=== PATIENT | female | born 1940 | race Caucasian/White ===

== ENCOUNTER → 2018-06-06 12:50 | Outpatient (CLI) | payer MEDICARE, SELFPAY ==
[2018-06-08 15:13] LABS: Fecal Immunochemical Test NOT DETECTED
== END ==
PROVIDERS: PCP Physician Assistant; Visit Provider Physician Assistant
DX: Z12.11 Encounter for screening for malignant neoplasm of colon (principal)
CPT/HCPCS: 82274

== ENCOUNTER → 2018-06-07 09:22 | Outpatient (CLI) | payer MEDICARE, SELFPAY ==
[2018-06-07 10:06] LABS: Cholesterol 227 mg/dL (140-199); HDL Cholesterol 72 mg/dL (40-60); LDL Cholesterol Calculated 136 mg/dL (<100); Triglycerides 96 mg/dL (35-150)
[2018-06-07 10:21] LABS: Vitamin D 25 Hydroxy (D3) 66.6 ng/mL (30.0-100.0)
[2018-06-07 10:53] LABS: Vitamin B12 542 pg/mL (239-931)
== END ==
PROVIDERS: PCP Physician Assistant; Visit Provider Physician Assistant
DX: M81.0 Age-related osteoporosis without current pathological fracture (principal); Z78.0 Asymptomatic menopausal state; E78.5 Hyperlipidemia, unspecified; M62.81 Muscle weakness (generalized); R26.89 Other abnormalities of gait and mobility; Z90.722 Acquired absence of ovaries, bilateral; Z82.62 Family history of osteoporosis
CPT/HCPCS: 36415; 77080; 80061; 82306; 82607

== ENCOUNTER → 2018-09-22 11:52 | Outpatient (CLI) | payer MEDICARE, SELFPAY ==
--- NOTE | 2018-09-22 | DI.MG.S_ITS ---
BILATERAL DIGITAL SCREENING MAMMOGRAM 3D/2D WITH CAD: 09/22/2018 CLINICAL: Routine screening. Family history of breast cancer. Comparison is made to exams dated: 09/20/2017 mammogram - [facility], 09/17/2016 mammogram - [facility], and 09/16/2015 mammogram - [facility]. The tissue of both breasts is extremely dense, which lowers the sensitivity of mammography. Current study was also evaluated with a Computer Aided Detection (CAD) system. There is a mole marker on both breasts. Partially imaged cardiac pacer device projects over the left upper chest, partially obscuring underlying anatomy. No significant masses, calcifications, or other findings are seen in either breast. There has been no significant interval change. IMPRESSION: NEGATIVE There is no mammographic evidence of malignancy. A 1 year screening mammogram is recommended. This exam was interpreted at Station ID: [id number]. NOTE: For mammograms, a report in lay terms will be sent to the patient. Approximately 15% of breast malignancies will not be visualized mammographically. In the management of a palpable breast mass, a negative mammogram must not discourage biopsy of a clinically suspicious lesion. Electronically Signed By: Frederic Sutton M.D. ecl/:09/22/2018 17:11:56 copy to: JOURDAN SELF letter sent: Normal Exam ACR BI-RADS Category 1: Negative 3341F
== END ==
PROVIDERS: PCP Physician Assistant; Visit Provider Physician Assistant
DX: Z12.31 Encounter for screening mammogram for malignant neoplasm of breast (principal); Z80.3 Family history of malignant neoplasm of breast
CPT/HCPCS: 77063; 77067

== ENCOUNTER → 2019-11-30 13:00 | Outpatient (CLI) | payer MEDICARE, SELFPAY ==
--- NOTE | 2019-11-30 | DI.MG.S_ITS ---
BILATERAL DIGITAL SCREENING MAMMOGRAM 3D/2D WITH CAD: 11/30/2019 CLINICAL: Routine screening. Family history of breast cancer. Comparison is made to exams dated: 09/22/2018 mammogram, 09/20/2017 mammogram - [facility], and 09/17/2016 mammogram - [facility]. The tissue of both breasts is extremely dense, which lowers the sensitivity of mammography. Current study was also evaluated with a Computer Aided Detection (CAD) system. There is a mole marker on both breasts. No significant masses, calcifications, or other findings are seen in either breast. There has been no significant interval change. IMPRESSION: NEGATIVE There is no mammographic evidence of malignancy. A 1 year screening mammogram is recommended. This exam was interpreted at Station ID: [id number]. NOTE: For mammograms, a report in lay terms will be sent to the patient. Approximately 15% of breast malignancies will not be visualized mammographically. In the management of a palpable breast mass, a negative mammogram must not discourage biopsy of a clinically suspicious lesion. Electronically Signed By: Hai honeycutt/gautam:11/30/2019 15:49:01 letter sent: Normal Exam ACR BI-RADS Category 1: Negative 3341F
== END ==
PROVIDERS: PCP Physician Assistant; Referring Provider Physician Assistant; Visit Provider Physician Assistant
DX: Z12.31 Encounter for screening mammogram for malignant neoplasm of breast (principal); Z80.3 Family history of malignant neoplasm of breast
CPT/HCPCS: 77063; 77067

== ENCOUNTER → 2020-03-26 08:30 | Outpatient (CLI) | payer MEDICARE, SELFPAY ==
[2020-03-26 09:32] LABS: Add Manual Diff / Slide Review NO; Basophils Absolute Auto 0 /uL (0-100); Eosinophils Absolute Auto 100 /uL (0-450); Eosinophils Percent Auto 3.8 % (2-4); Hematocrit 37.5 % (36-46); Hemoglobin 12.6 g/dL (12.0-16.0); Lymphocytes Absolute Auto 1300 /uL (1100-4500); Lymphocytes Percent Auto 38.9 % (25-40); Mean Corpuscular HGB Conc 33.7 % (30-36); Mean Corpuscular Hemoglobin 30.8 PG (26-34); Mean Corpuscular Volume 91.5 fL (80-100); Monocytes Absolute Auto 300 /uL (0-900); Monocytes Percent Auto 9.8 % (3-14); Neutrophils Absolute Auto 1500 /uL (1500-7000); Neutrophils Percent Auto 46.5 % (50-75); Platelet Count 259 X10^3/uL (150-400); Red Cell Distribution Width 13.4 % (11.6-14.8); White Blood Cell Count 3.2 X10^3/uL (4.5-11.0)
[2020-03-26 10:00] LABS: Erythrocyte Sedimentation Rate 2 MM/HR (0-20)
[2020-03-26 10:06] LABS: Alanine Aminotransferase 16 IU/L (<35); Albumin Globulin Ratio 1.4 (1.0-2.8); Alkaline Phosphatase 56 U/L (38-126); Aspartate Aminotransferase 26 IU/L (14-36); Bilirubin Total 0.5 mg/dL (0.2-1.3); Blood Urea Nitrogen 17 mg/dL (7-17); C-Reactive Protein Quant < 0.5 mg/dL (<1.0); Calcium 8.9 mg/dL (8.4-10.2); Carbon Dioxide 32 mmol/L (22-32); Chloride 104 mmol/L (98-107); Cholesterol 198 mg/dL (140-199); Estimated Glomerular Filt Rate > 60.0 mL/min (>60); Globulin 2.8 g/dL (1.7-4.1); Glucose 103 mg/dL (80-110); HDL Cholesterol 62 mg/dL (40-60); HEMOLYSIS < 15 (0-50); LDL Cholesterol Calculated 114 mg/dL (<100); Potassium 4.3 mmol/L (3.4-5.1); Sodium 138 mmol/L (137-145); Total Protein 6.8 g/dL (6.3-8.2); Triglycerides 111 mg/dL (35-150)
[2020-03-26 10:11] LABS: Free T3, Triiodothyronine Free 3.53 pg/mL (2.77-5.27); Free T4, Direct Thyroxine 0.95 ng/dL (0.78-2.19)
[2020-03-26 10:24] LABS: Thyroid Stimulating Hormone 2.36 uIU/mL (0.47-4.68)
[2020-03-26 10:56] LABS: Rheumatoid Factor < 8.6 IU/mL (<12.0)
== END ==
PROVIDERS: PCP Nurse Practitioner; Referring Provider Nurse Practitioner; Visit Provider Nurse Practitioner
DX: E78.5 Hyperlipidemia, unspecified (principal); I10 Essential (primary) hypertension; R29.898 Other symptoms and signs involving the musculoskeletal system; Z79.899 Other long term (current) drug therapy
CPT/HCPCS: 36415; 80053; 80061; 84439; 84443; 84481; 85025; 85651; 86140; 86430

== ENCOUNTER → 2020-03-27 08:34 | Outpatient (CLI) | payer MEDICARE, SELFPAY ==
[2020-03-27 11:24] LABS: Creatinine Urine Random 33.1 mg/dL
[2020-03-27 11:29] LABS: Microalbumin Urine Random < 0.6 mg/dL (0-1.6)
== END ==
PROVIDERS: PCP Nurse Practitioner; Referring Provider Nurse Practitioner; Visit Provider Nurse Practitioner
DX: E78.5 Hyperlipidemia, unspecified (principal); I10 Essential (primary) hypertension; R29.898 Other symptoms and signs involving the musculoskeletal system; Z79.899 Other long term (current) drug therapy
CPT/HCPCS: 82043; 82570

== ENCOUNTER → 2020-07-29 13:34 | Outpatient (CLI) | payer MEDICARE, SELFPAY | PROVIDERS: PCP Nurse Practitioner; Referring Provider Nurse Practitioner; Visit Provider Nurse Practitioner | DX: M81.0 Age-related osteoporosis without current pathological fracture (principal); Z78.0 Asymptomatic menopausal state; Z90.722 Acquired absence of ovaries, bilateral; Z82.62 Family history of osteoporosis | CPT/HCPCS: 77080 ==

== ENCOUNTER → 2020-12-02 10:16 | Outpatient (CLI) | payer MEDICARE, SELFPAY ==
--- NOTE | 2020-12-02 10:17 | DI.MG.S_ITS ---
BILATERAL DIGITAL SCREENING MAMMOGRAM 3D/2D WITH CAD: 12/02/2020 CLINICAL: Routine screening. Family history of breast cancer. Comparison is made to exams dated: 11/30/2019 mammogram, 09/22/2018 mammogram, and 09/20/2017 mammogram - [facility]. The tissue of both breasts is extremely dense, which lowers the sensitivity of mammography. Current study was also evaluated with a Computer Aided Detection (CAD) system. There is a mole marker on both breasts. No significant masses, calcifications, or other findings are seen in either breast. There has been no significant interval change. IMPRESSION: NEGATIVE There is no mammographic evidence of malignancy. A 1 year screening mammogram is recommended. This exam was interpreted at Station ID: [id number]. NOTE: For mammograms, a report in lay terms will be sent to the patient. Approximately 15% of breast malignancies will not be visualized mammographically. In the management of a palpable breast mass, a negative mammogram must not discourage biopsy of a clinically suspicious lesion. Electronically Signed By: Hai honeycutt/gautam:12/02/2020 12:24:30 letter sent: Normal Exam ACR BI-RADS Category 1: Negative 3341F
== END ==
PROVIDERS: PCP Nurse Practitioner; Referring Provider Nurse Practitioner; Visit Provider Nurse Practitioner
DX: Z12.31 Encounter for screening mammogram for malignant neoplasm of breast (principal); Z12.39 Encounter for other screening for malignant neoplasm of breast
CPT/HCPCS: 77063; 77067

== ENCOUNTER → 2021-05-29 09:36 | Outpatient (CLI) | payer MEDICARE, SELFPAY ==
[2021-05-29 11:00] LABS: Alanine Aminotransferase 28 IU/L (<35); Albumin 3.9 g/dL (3.5-5.0); Albumin Globulin Ratio 1.4 (1.0-2.8); Alkaline Phosphatase 53 U/L (38-126); Aspartate Aminotransferase 29 IU/L (14-36); BUN Creatinine Ratio 29.4 (6-22); Bilirubin Total 0.6 mg/dL (0.2-1.3); Blood Urea Nitrogen 20 mg/dL (7-17); Calcium 9.2 mg/dL (8.4-10.2); Carbon Dioxide 32 mmol/L (22-32); Chloride 103 mmol/L (98-107); Cholesterol 220 mg/dL (140-199); Estimated Glomerular Filt Rate > 60.0 mL/min (>60); Globulin 2.7 g/dL (1.7-4.1); Glucose 108 mg/dL (80-110); HDL Cholesterol 72 mg/dL (40-60); HEMOLYSIS < 15 (0-50); LDL Cholesterol Calculated 127 mg/dL (<100); Magnesium 2.1 mg/dL (1.6-2.3); Potassium 4.6 mmol/L (3.4-5.1); Sodium 138 mmol/L (137-145); Total Protein 6.6 g/dL (6.3-8.2); Triglycerides 104 mg/dL (35-150)
[2021-05-29 11:20] LABS: Free T3, Triiodothyronine Free 3.89 pg/mL (2.77-5.27); Free T4, Direct Thyroxine 0.99 ng/dL (0.78-2.19)
[2021-05-29 11:34] LABS: Thyroid Stimulating Hormone 2.22 uIU/mL (0.47-4.68)
== END ==
PROVIDERS: PCP Nurse Practitioner; Referring Provider Nurse Practitioner; Visit Provider Nurse Practitioner
DX: I10 Essential (primary) hypertension (principal); E78.5 Hyperlipidemia, unspecified; M79.10 Myalgia, unspecified site; Z79.899 Other long term (current) drug therapy
CPT/HCPCS: 36415; 80053; 80061; 83735; 84439; 84443; 84481

== ENCOUNTER → 2021-06-03 11:20 | Outpatient (CLI) | payer MEDICARE, SELFPAY | PROVIDERS: PCP Nurse Practitioner; Referring Provider Nurse Practitioner; Visit Provider Nurse Practitioner | DX: E78.5 Hyperlipidemia, unspecified (principal); I10 Essential (primary) hypertension; M79.10 Myalgia, unspecified site; Z79.899 Other long term (current) drug therapy | CPT/HCPCS: 82043; 82570 ==

== ENCOUNTER → 2021-07-24 08:16 | Outpatient (CLI) | payer MEDICARE, SELFPAY ==
[2021-07-24 09:05] LABS: Hematocrit 39.1 % (36-46); Platelet Count 293 X10^3/uL (150-400)
[2021-07-24 09:18] LABS: INR 1.1 (0.9-1.3); Prothrombin Time 12.4 SECONDS (10.1-12.7)
[2021-07-24 09:21] LABS: PTT Partial Thromboplastin Tim 35 SECONDS (26.4-36.2)
== END ==
PROVIDERS: PCP Nurse Practitioner; Referring Provider Physical Medicine & Rehabilitation; Visit Provider Physical Medicine & Rehabilitation
DX: M48.062 Spinal stenosis, lumbar region with neurogenic claudication (principal)
CPT/HCPCS: 36415; 85014; 85049; 85610; 85730

== ENCOUNTER → 2022-01-12 08:18 | Outpatient (CLI) | payer MEDICARE, SELFPAY ==
--- NOTE | 2022-01-12 08:20 | DI.MG.S_ITS ---
BILATERAL DIGITAL SCREENING MAMMOGRAM 3D/2D WITH CAD: 01/12/2022 CLINICAL: Routine screening. Family history of breast cancer. Comparison is made to exams dated: 12/02/2020 mammogram, 11/30/2019 mammogram, 09/22/2018 mammogram, 09/20/2017 mammogram - [facility], and 09/17/2016 mammogram - [facility]. The tissue of both breasts is extremely dense, which lowers the sensitivity of mammography. Current study was also evaluated with a Computer Aided Detection (CAD) system. No significant masses, calcifications, or other findings are seen in either breast. There has been no significant interval change. IMPRESSION: NEGATIVE There is no mammographic evidence of malignancy. A 1 year screening mammogram is recommended. Based on the Tyrer Cuzick model (a risk assessment model) the patient's lifetime risk is 3.3% and her 10 year risk is 0.0%. According to the ACR, ACS, and NCCN guidelines, an annual breast MRI exam along with mammogram is recommended if the patient's lifetime risk is 20% or greater. This exam was interpreted at Station ID: [id number]. NOTE: For mammograms, a report in lay terms will be sent to the patient. Approximately 15% of breast malignancies will not be visualized mammographically. In the management of a palpable breast mass, a negative mammogram must not discourage biopsy of a clinically suspicious lesion. Electronically Signed By: Brad lee/gautam:01/12/2022 09:32:32 letter sent: Normal Exam ACR BI-RADS Category 1: Negative 3341F
== END ==
PROVIDERS: PCP Nurse Practitioner; Referring Provider Nurse Practitioner; Visit Provider Nurse Practitioner
DX: Z12.31 Encounter for screening mammogram for malignant neoplasm of breast (principal); Z80.3 Family history of malignant neoplasm of breast
CPT/HCPCS: 77063; 77067

== ENCOUNTER → 2022-03-09 09:19 | Outpatient (CLI) | payer MEDICARE, SELFPAY ==
[2022-03-09 13:00] LABS: Influenza A - CEPHEID Flu A NEGATIVE (NEGATIVE); Influenza B - CEPHEID Flu B NEGATIVE (NEGATIVE)
[2022-03-09 13:27] LABS: COVID-19 CEPHEID PCR (VTM/NP) POSITIVE (Negative)
== END ==
PROVIDERS: PCP Nurse Practitioner; Visit Provider Physician Assistant Medical
DX: U07.1 COVID-19 (principal); R05.9 Cough, unspecified; R50.9 Fever, unspecified; Z20.822 Contact with and (suspected) exposure to COVID-19
CPT/HCPCS: 0240U

== ENCOUNTER → 2022-08-21 08:53 | Outpatient (CLI) | payer MEDICARE, SELFPAY ==
[2022-08-21 09:59] LABS: Alanine Aminotransferase 21 IU/L (<35); Albumin 4.3 g/dL (3.5-5.0); Albumin Globulin Ratio 1.4 (1.0-2.8); Alkaline Phosphatase 60 U/L (38-126); Aspartate Aminotransferase 25 IU/L (14-36); BUN Creatinine Ratio 21.7 (6-22); Bilirubin Total 0.8 mg/dL (0.2-1.3); Blood Urea Nitrogen 15 mg/dL (7-17); Carbon Dioxide 28 mmol/L (22-32); Chloride 102 mmol/L (98-107); Cholesterol 244 mg/dL (140-199); Estimated Glomerular Filt Rate > 60 mL/min (>60); Globulin 3.1 g/dL (1.7-4.1); Glucose 99 mg/dL (80-110); HDL Cholesterol 78 mg/dL (40-60); HEMOLYSIS < 15 (0-50); LDL Cholesterol Calculated 134 mg/dL (<100); Potassium 4.6 mmol/L (3.4-5.1); Sodium 137 mmol/L (137-145); Total Protein 7.4 g/dL (6.3-8.2); Triglycerides 159 mg/dL (35-150)
[2022-08-21 10:05] LABS: Add Manual Diff / Slide Review NO; Basophils Absolute Auto 0 /uL (0-100); Basophils Percent Auto 0.7 % (0-2); Eosinophils Absolute Auto 100 /uL (0-450); Eosinophils Percent Auto 2.3 % (2-4); Hematocrit 41.1 % (36-46); Hemoglobin 13.8 g/dL (12.0-16.0); Lymphocytes Absolute Auto 1200 /uL (1100-4500); Lymphocytes Percent Auto 37.1 % (25-40); Mean Corpuscular HGB Conc 33.4 % (30-36); Mean Corpuscular Hemoglobin 30.2 PG (26-34); Mean Corpuscular Volume 90.2 fL (80-100); Monocytes Absolute Auto 300 /uL (0-900); Monocytes Percent Auto 9.9 % (3-14); Neutrophils Absolute Auto 1600 /uL (1500-7000); Platelet Count 300 X10^3/uL (150-400); Red Blood Cell Count 4.56 X10^6/uL (4.0-5.2); Red Cell Distribution Width 13.2 % (11.6-14.8); White Blood Cell Count 3.2 X10^3/uL (4.5-11.0)
[2022-08-21 10:14] LABS: Vitamin D 25 Hydroxy (D3) 94.8 ng/mL (30.0-100.0)
== END ==
PROVIDERS: PCP Family Medicine; Referring Provider Family Medicine; Visit Provider Family Medicine
DX: Z13.820 Encounter for screening for osteoporosis (principal); M81.0 Age-related osteoporosis without current pathological fracture; E78.5 Hyperlipidemia, unspecified; G62.9 Polyneuropathy, unspecified; I10 Essential (primary) hypertension; Z79.83 Long term (current) use of bisphosphonates; Z90.710 Acquired absence of both cervix and uterus
CPT/HCPCS: 36415; 77080; 80053; 80061; 82306; 85025

== ENCOUNTER → 2022-09-24 09:04 | Outpatient (CLI) | payer MEDICARE, SELFPAY ==
[2022-09-24 10:56] LABS: Ferritin 55 ng/mL (11-264)
[2022-09-24 10:59] LABS: Free T4, Direct Thyroxine 1.08 ng/dL (0.78-2.19)
[2022-09-24 11:00] LABS: Free T3, Triiodothyronine Free 3.73 pg/mL (2.77-5.27)
[2022-09-24 11:14] LABS: Thyroid Stimulating Hormone 0.662 uIU/mL (0.47-4.68)
[2022-10-12 13:51] LABS: Triiodothyronine T3 Reverse 12.7
== END ==
PROVIDERS: PCP Family Medicine; Referring Provider Family Medicine; Visit Provider Family Medicine
DX: L65.9 Nonscarring hair loss, unspecified (principal)
CPT/HCPCS: 36415; 82728; 84439; 84443; 84481; 84482

== ENCOUNTER → 2023-01-27 13:57 | Outpatient (CLI) | payer MEDICARE, SELFPAY ==
--- NOTE | 2023-01-27 | DI.MG.S_ITS ---
BILATERAL DIGITAL SCREENING MAMMOGRAM 3D/2D WITH CAD: 01/27/2023 CLINICAL: Routine screening. Family history of breast cancer. Comparison is made to exams dated: 01/12/2022 mammogram, 12/02/2020 mammogram, and 11/30/2019 mammogram - [facility]. Both breasts are heterogeneously dense, which may obscure small masses (category c / 51-75% glandular tissue). Current study was also evaluated with a Computer Aided Detection (CAD) system. No significant masses, calcifications, or other findings are seen in either breast. There has been no significant interval change. IMPRESSION: NEGATIVE There is no mammographic evidence of malignancy. A 1 year screening mammogram is recommended. Based on the Tyrer Cuzick model (a risk assessment model) the patient's lifetime risk is 1.5% and her 10 year risk is 0.0%. According to the ACR, ACS, and NCCN guidelines, an annual breast MRI exam along with mammogram is recommended if the patient's lifetime risk is 20% or greater. This exam was interpreted at Station ID: [id number]. NOTE: For mammograms, a report in lay terms will be sent to the patient. Approximately 15% of breast malignancies will not be visualized mammographically. In the management of a palpable breast mass, a negative mammogram must not discourage biopsy of a clinically suspicious lesion. Electronically Signed By: Felecia gurrola/gautam:01/27/2023 15:01:40 letter sent: Normal Exam ACR BI-RADS Category 1: Negative 3341F
== END ==
PROVIDERS: PCP Family Medicine; Referring Provider Family Medicine; Visit Provider Family Medicine
DX: Z12.31 Encounter for screening mammogram for malignant neoplasm of breast (principal); Z80.3 Family history of malignant neoplasm of breast
CPT/HCPCS: 77063; 77067

== ENCOUNTER → 2023-07-28 09:30 | Outpatient (CLI) | payer MEDICARE, SELFPAY ==
[2023-07-28 10:58] LABS: Blood Urea Nitrogen 12 mg/dL (7-17); Calcium 9.2 mg/dL (8.4-10.2); Carbon Dioxide 29 mmol/L (22-32); Chloride 104 mmol/L (98-107); Estimated Glomerular Filt Rate > 60 mL/min (>60); Glucose 103 mg/dL (80-110); HEMOLYSIS < 15 (0-50); Potassium 4.6 mmol/L (3.4-5.1); Sodium 136 mmol/L (137-145)
[2023-07-28 11:22] LABS: TSH w/ Reflex to FT4 1.78 uIU/mL (0.47-4.68)
== END ==
PROVIDERS: PCP Family Medicine; Referring Provider Internal Medicine Cardiovascular Disease; Visit Provider Family Medicine
DX: Z13.29 Encounter for screening for other suspected endocrine disorder (principal); I48.91 Unspecified atrial fibrillation; I44.1 Atrioventricular block, second degree; I49.5 Sick sinus syndrome; L65.9 Nonscarring hair loss, unspecified; M81.0 Age-related osteoporosis without current pathological fracture; M79.10 Myalgia, unspecified site
CPT/HCPCS: 36415; 80048; 84443

== ENCOUNTER → 2024-02-04 07:54 | Outpatient (CLI) | payer MEDICARE, SELFPAY ==
--- NOTE | 2024-02-04 | DI.MG.S_ITS ---
BILATERAL DIGITAL SCREENING MAMMOGRAM 3D/2D WITH CAD: 02/04/2024 CLINICAL: Routine screening. Family history of breast cancer. Comparison is made to exams dated: 01/27/2023 mammogram, 01/12/2022 mammogram, and 12/02/2020 mammogram - [facility]. Both breasts are extremely dense, which lowers the sensitivity of mammography (category d />75% glandular tissue). Current study was also evaluated with a Computer Aided Detection (CAD) system. No significant masses, calcifications, or other findings are seen in either breast. There has been no significant interval change. IMPRESSION: NEGATIVE There is no mammographic evidence of malignancy. A 1 year screening mammogram is recommended. Based on the Tyrer Cuzick model (a risk assessment model) the patient's lifetime risk is 1.1% and her 10 year risk is 0.0%. According to the ACR, ACS, and NCCN guidelines, an annual breast MRI exam along with mammogram is recommended if the patient's lifetime risk is 20% or greater. This exam was interpreted at Station ID: [id number]. NOTE: For mammograms, a report in lay terms will be sent to the patient. Approximately 15% of breast malignancies will not be visualized mammographically. In the management of a palpable breast mass, a negative mammogram must not discourage biopsy of a clinically suspicious lesion. Electronically Signed By: Erasto tsai/gautam:02/04/2024 12:49:52 letter sent: Normal Exam ACR BI-RADS Category 1: Negative 3341F
== END ==
PROVIDERS: PCP Family Medicine; Referring Provider Family Medicine; Visit Provider Family Medicine
DX: Z12.31 Encounter for screening mammogram for malignant neoplasm of breast (principal); Z80.3 Family history of malignant neoplasm of breast; R92.343 Mammographic extreme density, bilateral breasts
CPT/HCPCS: 77063; 77067

== ENCOUNTER → 2024-02-21 11:12 | Outpatient (CLI) | payer MEDICARE, SELFPAY ==
[2024-02-21 16:18] LABS: Creatinine Urine Random 26.73 mg/dL; Protein (Total) Urine Random 11 mg/dL (0-12); Protein Creatinine Ratio Urine 0.41 GRAM/24H
== END ==
PROVIDERS: PCP Family Medicine; Visit Provider Family Medicine
DX: I10 Essential (primary) hypertension (principal); R10.9 Unspecified abdominal pain
CPT/HCPCS: 82570; 84156

== ENCOUNTER → 2024-02-21 11:38 | Outpatient (CLI) | payer MEDICARE, SELFPAY ==
--- NOTE | 2024-02-21 11:40 | DI.RAD.S_ITS ---
PROCEDURE: XR LUMBAR SPINE 2-3V INDICATIONS: severity of scoliosis, R iliac crest pain TECHNIQUE: 3 views of the lumbar spine were acquired. COMPARISON: [facility], CT, CT MYELOGRAM LUMBAR SPINE, 07/30/2021, 12:44. FINDINGS: Bones: 5 [id number] vertebrae are present. Dextroscoliosis. No vertebral body compression fractures. No suspicious bony lesions. Soft tissues: Overlying bowel gas pattern is normal. No suspicious soft tissue calcifications. Pacemaker leads. IMPRESSION: No compression fracture. CT bony pelvis could be considered for further evaluation. Dictated by: Brad Borrego M.D. on 02/21/2024 at 16:07 Approved by: Brad Borrego M.D. on 02/21/2024 at 16:09
--- NOTE | 2024-02-21 11:40 | DI.RAD.S_ITS ---
PROCEDURE: XR THORACIC SPINE 3V INDICATIONS: severity of scoliosis TECHNIQUE: 3 views of the thoracic spine were acquired. COMPARISON: [facility], CT, CT MYELOGRAM LUMBAR SPINE, 07/30/2021, 12:44. Located Within [facility], CR, XR LUMBAR SPINE 2-3V, 02/21/2024, 11:47. FINDINGS: Bones: No fractures or dislocations. No suspicious bony lesions. Small vertebral body osteophytes. Multilevel disc space height loss. Lumbar scoliosis. 12 pairs of ribs are noted, and appear intact where visualized. Soft tissues: No paravertebral stripe thickening. Left pacemaker. Post median sternotomy. Cardiac valve replacement. 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 No compression fracture. Dictated by: Brad Borrego M.D. on 02/21/2024 at 16:09 Approved by: Brad Borrego M.D. on 02/21/2024 at 16:11
== END ==
PROVIDERS: PCP Family Medicine; Referring Provider Family Medicine; Visit Provider Family Medicine
DX: M47.814 Spondylosis without myelopathy or radiculopathy, thoracic region (principal); M54.50 Low back pain, unspecified; I10 Essential (primary) hypertension; M41.9 Scoliosis, unspecified; R10.9 Unspecified abdominal pain
CPT/HCPCS: 72072; 72100; 82570; 84156

== ENCOUNTER → 2024-05-01 08:10 | Outpatient (CLI) | payer MEDICARE, SELFPAY ==
[2024-05-01 09:51] LABS: BUN Creatinine Ratio 21.4 (6-22); Blood Urea Nitrogen 15 mg/dL (7-17); Calcium 9.3 mg/dL (8.4-10.2); Carbon Dioxide 28 mmol/L (22-32); Chloride 104 mmol/L (98-107); Estimated Glomerular Filt Rate > 60 mL/min (>60); Glucose 113 mg/dL (80-110); HEMOLYSIS < 15 (0-50); Potassium 4.8 mmol/L (3.4-5.1); Sodium 138 mmol/L (137-145)
== END ==
PROVIDERS: PCP Family Medicine; Referring Provider Nurse Practitioner; Visit Provider Nurse Practitioner
DX: Z51.81 Encounter for therapeutic drug level monitoring (principal); Z79.899 Other long term (current) drug therapy
CPT/HCPCS: 36415; 80048

== ENCOUNTER → 2024-12-25 09:09 | Outpatient (CLI) | payer MEDICARE, SELFPAY ==
[2024-12-25 10:22] LABS: BUN Creatinine Ratio 26.6 (6-22); Blood Urea Nitrogen 17 mg/dL (7-17); Calcium 9.4 mg/dL (8.4-10.2); Carbon Dioxide 27 mmol/L (22-32); Chloride 103 mmol/L (98-107); Estimated Glomerular Filt Rate > 60 mL/min (>60); Glucose 110 mg/dL (70-99); HEMOLYSIS < 15 (0-50); Potassium 4.7 mmol/L (3.4-5.1); Sodium 136 mmol/L (137-145)
== END ==
PROVIDERS: PCP Family Medicine; Referring Provider Nurse Practitioner; Visit Provider Nurse Practitioner
DX: Z51.81 Encounter for therapeutic drug level monitoring (principal); Z79.899 Other long term (current) drug therapy
CPT/HCPCS: 36415; 80048

== ENCOUNTER → 2025-02-05 11:10 | Outpatient (CLI) | payer MEDICARE, SELFPAY ==
--- NOTE | 2025-02-05 11:11 | DI.MG.S_ITS ---
MM screening mammo BI: 02/05/2025. BI-RADS: 1 CLINICAL: 84-year old female for bilateral screening mammogram. No Tyrer-Cuzick risk score calculation due to patient's age being over 85 years old. Current reported family history of breast cancer: sister and maternal aunt's daughter. PRIOR EXAMS 02/04/2024, 01/27/2023, 01/12/2022, 12/02/2020. MAMMOGRAPHY TECHNIQUE: 2D and 3D (tomosynthesis) digital mammographic views obtained, with additional images as needed for full coverage. Current study was also evaluated with a Computer Aided Detection (CAD) system. DENSITY D. The breasts are extremely dense, which lowers the sensitivity of mammography. MAMMOGRAPHY FINDINGS Bilateral: No suspicious mass, asymmetry, microcalcification, or other abnormality seen. IMPRESSION: * No evidence of malignancy. RECOMMENDATIONS Bilateral * Annual screening mammography. OVERALL ASSESSMENT CATEGORY BI-RADS-1: Negative. The [employer] recommends annual screening mammography beginning at age 40 for women with average risk of breast cancer. ELECTRONICALLY SIGNED: Angi Ward M.D. on 02/07/2025 at 04:01:59 PM PT Interpreting Station ID: [id number]
== END ==
PROVIDERS: PCP Family Medicine; Referring Provider Family Medicine; Visit Provider Family Medicine
DX: Z12.31 Encounter for screening mammogram for malignant neoplasm of breast (principal); R92.333 Mammographic heterogeneous density, bilateral breasts; Z80.3 Family history of malignant neoplasm of breast
CPT/HCPCS: 77063; 77067

== ENCOUNTER → 2025-03-09 07:46 | Outpatient (CLI) | payer MEDICARE, SELFPAY ==
[2025-03-09 09:12] LABS: Alanine Aminotransferase 16 IU/L (<35); Albumin 4.1 g/dL (3.5-5.0); Albumin Globulin Ratio 1.5 (1.0-2.8); Alkaline Phosphatase 54 U/L (38-126); Blood Urea Nitrogen 19 mg/dL (7-17); Calcium 9.1 mg/dL (8.4-10.2); Carbon Dioxide 29 mmol/L (22-32); Chloride 104 mmol/L (98-107); Estimated Glomerular Filt Rate > 60 mL/min (>60); Globulin 2.7 g/dL (1.7-4.1); Glucose 108 mg/dL (70-99); HEMOLYSIS < 15 (0-50); Potassium 4.7 mmol/L (3.4-5.1); Sodium 138 mmol/L (137-145); Total Protein 6.8 g/dL (6.3-8.2)
== END ==
PROVIDERS: PCP Family Medicine; Referring Provider Family Medicine; Visit Provider Family Medicine
DX: I10 Essential (primary) hypertension (principal); E78.2 Mixed hyperlipidemia; Z79.01 Long term (current) use of anticoagulants
CPT/HCPCS: 36415; 80053

== ENCOUNTER → 2025-06-19 12:15 | Outpatient (CLI) | payer MEDICARE, SELFPAY ==
[2025-06-19 13:34] LABS: Blood Urea Nitrogen 17 mg/dL (7-17); Calcium 9.7 mg/dL (8.4-10.2); Carbon Dioxide 30 mmol/L (22-32); Chloride 103 mmol/L (98-107); Estimated Glomerular Filt Rate > 60 mL/min (>60); Glucose 99 mg/dL (70-99); HEMOLYSIS < 15 (0-50); Magnesium 2.0 mg/dL (1.6-2.3); Potassium 4.4 mmol/L (3.4-5.1); Sodium 136 mmol/L (137-145)
== END ==
PROVIDERS: PCP Family Medicine; Referring Provider Nurse Practitioner; Visit Provider Nurse Practitioner
DX: Z51.81 Encounter for therapeutic drug level monitoring (principal); Z79.899 Other long term (current) drug therapy
CPT/HCPCS: 36415; 80048; 83735